=== PATIENT | female | born 1995 | race Caucasian/White ===

== ENCOUNTER 2017-10-22 16:58 | Inpatient (IN) | payer OTHER ==
[2017-10-22 17:17] VITALS: BMI 24.7
[2017-10-22] MEDS ORDERED: AMPICILLIN VIAL 2 GM ONE (17:19)
[2017-10-22] MEDS ORDERED: D5 1/2 NS 1L W PITOCIN 20 UNITS/L 20 UNITS/1,000 ML BAG IV ONE (17:19)
[2017-10-22] MEDS ORDERED: D5 1/2 NS 1000 ML 1,000 ML IV ONE (17:19)
[2017-10-22] MEDS ORDERED: PITOCIN ONE (17:19)
[2017-10-22] MEDS ORDERED: NS 250 ML IV 250 ML IV ONE (17:20)
[2017-10-22 17:23] LABS: BASOPHILS # (AUTO) 0.1 X10^3/uL (0.0-0.1); BASOPHILS % (AUTO) 0.5 % (0.2-1.0); EOSINOPHILS # (AUTO) 0.1 x10^3/uL (0.0-0.2); EOSINOPHILS % (AUTO) 0.6 % (0.9-2.9); HEMATOCRIT 35.1 % (36.0-47.0); HEMOGLOBIN 11.7 g/dL (12.0-16.0); LYMPHOCYTES # (AUTO) 2.8 X10^3/uL (1.3-2.9); LYMPHOCYTES % (AUTO) 23.3 % (21.0-51.0); MEAN CORPUSCULAR HEMOGLOBIN 27.8 pg (27.0-34.0); MEAN CORPUSCULAR HGB CONC 33.4 g/dL (33.0-35.0); MEAN CORPUSCULAR VOLUME 83.3 fL (80.0-100.0); MEAN PLATELET VOLUME 9.9 fL (7.4-11.0); MONOCYTES # (AUTO) 0.6 x10^3/uL (0.3-0.8); MONOCYTES % (AUTO) 5.3 % (0.0-13.0); NEUTROPHILS # (AUTO) 8.5 x10^3/uL (2.2-4.8); NEUTROPHILS % (AUTO) 70.3 % (42.0-75.0); PLATELET COUNT 188 X10^3/uL (150.0-450.0); RED BLOOD COUNT 4.21 X10^6/uL (3.5-5.4); RED CELL DISTRIBUTION WIDTH 14.3 % (11.6-16.5); WHITE BLOOD COUNT 12.1 X10^3/uL (3.6-10.0)
[2017-10-22] MEDS ORDERED: D5 1/2 NS 1000 ML 1,000 ML IV SCH (17:28)
[2017-10-22] MEDS ORDERED: AMPICILLIN VIAL 2 GM 2 GM in NS 100 ML IV + SPIKE MINIBAG* 100 ML IV SCH (17:28)
[2017-10-22] MEDS ORDERED: PITOCIN IVP ONE (17:28)
[2017-10-22 17:35] LABS: ALANINE AMINOTRANSFERASE 13 Units/L (12-78); ALBUMIN 2.7 g/dL (3.4-5.0); ALKALINE PHOSPHATASE 218 Units/L (46-116); ASPARTATE AMINO TRANSFERASE 15 Units/L (15-37); BLOOD UREA NITROGEN 7 mg/dL (7-18); CALCIUM 8.9 mg/dL (8.5-10.1); CARBON DIOXIDE 22.3 mmol/L (21-32); CHLORIDE 103 mmol/L (98-107); COR CA(FOR HYPOALB) 9.9 mg/dL (8.5-10.1); CREATININE 0.73 mg/dL (0.55-1.02); SODIUM 137 mmol/L (136-145); TOTAL PROTEIN 6.8 g/dL (6.4-8.2); eGFR BLACK RACES > 60 (>60); eGFR NON BLACK RACES > 60 (>60)
[2017-10-22] MEDS ORDERED: D5 1/2 NS 1000 ML 1,000 ML with PITOCIN 20 UNITS IV SCH ×2 (17:40)
[2017-10-22] MEDS ORDERED: XYLOCAINE 1 % (PLAIN) ONE (17:43)
[2017-10-22] MEDS ORDERED: MILK OF MAGNESIA PO PRN (19:51)
[2017-10-22] MEDS ORDERED: DERMOPLAST SPRAY TOP PRN (19:51)
[2017-10-22] MEDS ORDERED: MOTRIN TAB 800 MG PO PRN (19:51)
[2017-10-22] MEDS ORDERED: AMBIEN PO PRN (19:51)
[2017-10-22] MEDS: ZANTAC PO SCH (20:33)
[2017-10-23] MEDS ORDERED: PHENERGAN INJ 25 MG IV ONE (01:06)
[2017-10-23] MEDS ORDERED: MORPHINE SULFATE INJ 10 MG IVP ONE (01:08)
[2017-10-23] MEDS ORDERED: D5 1/2 NS 1000 ML 1,000 ML with PITOCIN 20 UNITS IV SCH ×2 (01:40)
[2017-10-23 02:03] LABS: COLOR,URINE BLOODY (YELLOW)
[2017-10-23 02:04] LABS: APPEARANCE,URINE SLIGHTLY HAZY (CLEAR); BACTERIA,URINE Trace /HPF (Negative); MUCUS,URINE FEW /HPF (NEGATIVE); RBC,URINE TNTC /HPF (NEGATIVE); SQUAMOUS EPITHELIAL CELL,UR MODERATE /HPF (NEGATIVE)
[2017-10-23 06:25] LABS: HEMATOCRIT 28.8 % (36.0-47.0); HEMOGLOBIN 9.7 g/dL (12.0-16.0)
[2017-10-23] MEDS: PRENATAL PLUS PO SCH (08:46)
[2017-10-23] MEDS: ZANTAC PO SCH ×2 (08:46→20:37)
[2017-10-24] MEDS: PRENATAL PLUS PO SCH (09:12)
[2017-10-24] MEDS: ZANTAC PO SCH (09:13)
[2017-10-24 14:52] VITALS: BP 110/72
== END 2017-10-24 16:30 | disposition home or self-care (01) | DRG 775 ==
LOC: ER 17:12 → LD 17:28 → MED/SURG 18:59
PROVIDERS: ADMIT Obstetrics & Gynecology Obstetrics; ATTEND Obstetrics & Gynecology Obstetrics
PROC: 10E0XZZ Delivery of Products of Conception, External Approach (ICD-10-PCS; principal; 2017-10-22)
PROC: 0KQM0ZZ Repair Perineum Muscle, Open Approach (ICD-10-PCS; 2017-10-22)
DX: O70.1 Second degree perineal laceration during delivery (principal); O09.33 Supervision of pregnancy with insufficient antenatal care, third trimester; Z37.0 Single live birth; Z3A.39 39 weeks gestation of pregnancy
CPT/HCPCS: 36415; 59409; 80053; 80307; 81015; 85014; 85018; 85025; 86592; 86850; 86900; 86901; 96365; 99284; A4216; A4222; S0197; G0434; J0290; J2001; J2270; J2550; J2590; J7042